=== PATIENT | male | born 1950 | race Caucasian/White ===

== ENCOUNTER 2019-07-26 13:56 | Day surgery (SDC) | payer MEDICARE ==
[2019-07-23 09:14] LABS: BASOPHILS % (AUTO) 0.4 % (0-1); EOSINOPHILS # (AUTO) 0.1 X10'3 (0-0.9); EOSINOPHILS % (AUTO) 1.6 % (0-6); HEMATOCRIT 45.8 % (42.0-52.0); HEMOGLOBIN 15.7 g/dl (14.0-17.9); LYMPHOCYTES # (AUTO) 0.9 X10'3 (1.1-4.8); MEAN CORPUSCULAR HEMOGLOBIN 30.4 PG (27.0-31.0); MEAN CORPUSCULAR HGB CONC 34.4 g/dL (33.0-36.5); MEAN CORPUSCULAR VOLUME 88.4 FL (78-98); MEAN PLATELET VOLUME 9.1 FL (7.4-10.4); MONOCYTES # (AUTO) 0.5 X10'3 (0-0.9); MONOCYTES % (AUTO) 8.8 % (2-12); NEUTROPHILS % (AUTO) 72.2 % (42-75); PLATELET COUNT 176 X10'3 (140-440); RED BLOOD COUNT 5.18 X10'6 (4.70-6.10); RED CELL DISTRIBUTION WIDTH 13.3 % (11.5-14.5); WHITE BLOOD COUNT 5.6 X10'3 (4.5-11.0)
[2019-07-23 09:22] LABS: ALBUMIN 3.8 G/DL (3.4-5.0); ANION GAP 8 (8-16); BLOOD UREA NITROGEN 24 MG/DL (7-18); BUN/CREATININE RATIO 21.4 (5.4-32.0); CALCIUM 8.9 MG/DL (8.5-10.1); CHLORIDE 104 MMOL/L (99-107); CREATININE 1.12 MG/DL (0.60-1.10); GLUCOSE 99 MG/DL (70-104); POTASSIUM 3.9 MMOL/L (3.5-5.1); SODIUM 138 MMOL/L (135-145); TOTAL CARBON DIOXIDE 26.4 MMOL/L (24-32); eGFR 65 ML/MIN
[2019-07-23 09:34] LABS: PARTIAL THROMBOPLASTIN TIME 27 SECONDS (22-32)
[~2019-07-26] VITALS: Ht 172.7 cm; Wt 98.4 kg
[2019-07-26] MEDS ORDERED: diphenhydrAMINE 25mg capsule PO PRN (14:15)
[2019-07-26] MEDS ORDERED: LIDOcaine/PRILOcaine 5gm cream TP ONE (14:15)
[2019-07-26] MEDS ORDERED: LORazepam 0.5 MG tablet PO PRN (14:15)
[2019-07-26] MEDS ORDERED: normal saline 1,000 ML IV SCH (14:15)
[2019-07-26 14:36] VITALS: BP 116/55
[2019-07-26] MEDS ORDERED: fentaNYL/PF 50MCG/1 ML 2ML syringe ONE (15:24)
[2019-07-26] MEDS ORDERED: midazolam 2 mg/2 ml injection ONE (15:24)
[2019-07-26] MEDS ORDERED: verapamil 2.5 mg/ml inj IV ONE (15:24)
[2019-07-26] MEDS ORDERED: ASPI81TA52 PO (15:25)
[2019-07-26] MEDS ORDERED: iohexol 350MG/ML 100ml bottle IV ONE (15:25)
[2019-07-26] MEDS ORDERED: nitroGLYCERIN-Tridil 50MG/D5W 250 ML IV ONE (15:25)
[2019-07-26] MEDS ORDERED: FLUT16SP2 BOTHNARES (15:25)
[2019-07-26] MEDS ORDERED: XAL0.005OS OP (15:25)
[2019-07-26] MEDS ORDERED: PRAV20TA4 PO (15:25)
[2019-07-26] MEDS ORDERED: NIFE90TA44 PO (15:25)
[2019-07-26] MEDS ORDERED: CHLO25TA2 PO (15:25)
[2019-07-26] MEDS ORDERED: LOSA100T3 PO (15:25)
[2019-07-26] MEDS ORDERED: DOXA4TAB2 PO (15:25)
[2019-07-26] MEDS ORDERED: LIDOcaine 1% (10mg/ml)w/preservative injection 20ml MDV ONE (15:25)
[2019-07-26] MEDS ORDERED: heparin 1,000unit/ml 10ml vial 10 ML ONE (16:38)
[2019-07-26 17:35] VITALS: BP 102/63
[2019-07-26 17:42] VITALS: BP 104/63
[2019-07-26 18:12] VITALS: BP 101/59
[2019-07-26] MEDS ORDERED: ondansetron/PF 4mg/2ml inj IV PRN (18:15)
[2019-07-26] MEDS ORDERED: HYDROcodone/acetaminophen 5mg/325mg tablet PO PRN (18:15)
[2019-07-26] MEDS ORDERED: proCHLORperazine 10 MG/2 ml inj IV PRN (18:20)
[2019-07-26] MEDS ORDERED: HYDROcodone/acetaminophen 10/325mg tab PO PRN (18:20)
[2019-07-26] MEDS ORDERED: OXAZEpam 15mg capsule PO PRN (18:20)
[2019-07-26 18:27] VITALS: BP 113/65
[2019-07-26 18:42] VITALS: BP 112/64
== END 2019-07-26 19:15 | disposition home or self-care (01) ==
LOC: SSTAY O 13:56
PROVIDERS: ATTEND Internal Medicine Interventional Cardiology
DX: R94.39 Abnormal result of other cardiovascular function study (principal); I25.10 Atherosclerotic heart disease of native coronary artery without angina pectoris; I10 Essential (primary) hypertension; Z88.2 Allergy status to sulfonamides; Z88.0 Allergy status to penicillin; Z88.1 Allergy status to other antibiotic agents; Z79.899 Other long term (current) drug therapy; Z79.82 Long term (current) use of aspirin; Z95.0 Presence of cardiac pacemaker
CPT/HCPCS: 36415; 80048; 85025; 85610; 85730; 93005; 93458; 99152; C1894; J1644; J2001; J2250; J3010; J7030; Q0163; Q9967; 99153; A4620; A5120; J3490